=== PATIENT | female | born 1955 ===

== ENCOUNTER 2017-01-17 21:08 | Emergency (ER) | payer MEDICARE, SELFPAY ==
[2017-01-17 21:08] VITALS: BMI 30.2
[2017-01-17 21:23] VITALS: BP 117/74; PULSE 77; TEMP 98.5; O2SAT 99
[2017-01-17 21:44] LABS: RBC URINE 1 /hpf (0-3); URINE BACTERIA OCC (<OCC); URINE BILIRUBIN NEGATIVE (NEGATIVE); URINE BLOOD NEGATIVE (NEGATIVE); URINE COLOR Straw (YELLOW); URINE GLUCOSE (UA) NORMAL (Normal); URINE KETONE NEGATIVE (NEGATIVE); URINE LEUKOCYTE ESTERASE 1+ Leu/uL (Negative); URINE PROTEIN NEGATIVE (NEGATIVE); URINE UROBILINOGEN NORMAL mg/dL (0.2-1.0); WBC URINE 13 /hpf (0-5)
--- NOTE | 2017-01-17 22:27 | C.PDOC ---
History Of Present Illness 61 y/o female with known hx recurrent UTI, presents complaining of lower back pain, suprapublic pain, and moderate dysuria since last night. She reports that this is similar to previous UTI. No fever, chills, nausea, vomiting, or other complaints. Time Seen by Provider: 01/17/17 21:30 Chief Complaint (Nursing): Female Genitourinary History Per: Patient History/Exam Limitations: no limitations Onset/Duration Of Symptoms: Days (1) Current Symptoms Are (Timing): Still Present Severity: Moderate Quality Of Discomfort: "Pain" Associated Symptoms: Back Pain, Urinary Symptoms. denies: Fever, Chills, Nausea , Vomiting, Diarrhea, Loss Of Appetite, Chest Pain, Constipation Alleviating Factors: None Recent travel outside of the [place]: No Additional History Per: Patient Past Medical History Vital Signs: Last Vital Signs Temp 98.5 F 01/17/17 21:20 Pulse 77 01/17/17 21:20 Resp 20 01/17/17 22:35 BP 117/74 01/17/17 21:20 Pulse Ox 99 01/18/17 03:02 - Medical History PMH: Anemia, Anxiety, Arthritis, Asthma, Back Problems, Colonic Polyps, COPD ( COPD), Depression, Diverticulitis, Fibromyalgia, Gastritis, HTN, Hyperlipidemia Denies: Chronic Kidney Disease Surgical History: Appendectomy, Endoscopy (Colonoscopy) - [facility] Procedures ANESTH INJEC PERIPH NERV (01/19/15) ARTHROTOMY FOR REMOVAL OF PROSTHESIS W/OUT REPM, KNEE (11/03/14) CLOSED BIOPSY OF SKIN AND SUBCUTANEOUS TISSUE (11/03/14) DESTRUCT-KNEE LESION NEC (01/19/15) INJECT STEROID (01/19/15) INSERTION OR REPLACEMENT OF (CEMENT) SPACER (11/03/14) NONEXCIS DEBRID OF WOUND, INFECT, OR BURN (11/03/14) OPEN BIOPSY OF SOFT TISSUE (01/19/15) PACKED CELL TRANSFUSION (11/03/14) PERIPH NERVE INJECT NEC (01/19/15) PHYSICAL THERAPY NEC (05/14/14) REMOVAL OF (CEMENT) SPACER (01/19/15) TITUS OF KNEE REPLACEMENT, TOTAL (ALL COMPONENTS) (01/19/15) Family History: States: Unknown Family Hx - Social History Hx Tobacco Use: No Hx Alcohol Use: No Hx Substance Use: No - Immunization History Hx Tetanus Toxoid Vaccination: No Hx Influenza Vaccination: No Hx Pneumococcal Vaccination: Yes Review Of Systems Except As Marked, All Systems Reviewed And Found Negative. Gastrointestinal: Positive for: Abdominal Pain Genitourinary: Positive for: Dysuria Musculoskeletal: Positive for: Back Pain Physical Exam - Physical Exam Appears: Well, No Acute Distress Skin: Normal Color, Warm, Dry Eye(s): bilateral: Normal Inspection, PERRL, EOMI Nose: Normal Throat: Normal Neck: Normal Cardiovascular: Rhythm Regular Respiratory: Normal Breath Sounds Gastrointestinal/Abdominal: Normal Exam Back: Normal Inspection Extremity: Normal ROM ED Course And Treatment O2 Sat by Pulse Oximetry: 99 (RA) Pulse Ox Interpretation: Normal Progress Note: UA positive for RBC and WBC. Patient given Toradol, Pyridium, and Macrobid. C&S sent. Rx for Pyridium and Macrobid given. Follow up with PMD. Disposition Counseled Patient/Family Regarding: Diagnosis, Need For Followup - Disposition Disposition: HOME/ ROUTINE Disposition Time: 02:40 Condition: STABLE Additional Instructions: Please Increase fluids Take meds as directed Follow up with PMD Return to ER if worse Prescriptions: Nitrofurantoin Macrocrystals [Macrobid] 1 cap PO BID #14 cap Phenazopyridine HCl [Pyridium] 100 mg PO TID #5 tab Instructions: Urinary Tract Infection in Women (ED) - Clinical Impression Clinical Impression: UTI (urinary tract infection) - Scribe Statement The provider has reviewed the documentation as recorded by the Scribe Vanessa Torres
[2017-01-17 22:37] VITALS: RESP 20
== END 2017-01-17 22:35 | disposition home or self-care (01) ==
LOC: C.ER 21:08
DX: N39.0 Urinary tract infection, site not specified (principal)
CPT/HCPCS: 81001; 96372; 99283; J1885

== ENCOUNTER 2017-03-12 13:06 | Emergency (ER) | payer MEDICARE ==
[2017-03-12 13:06] VITALS: BMI 30.2
[2017-03-12] MEDS ORDERED: Albuterol-Ipratrop 3 mg / 0.5 (3 ml) UD ONE (15:00)
[2017-03-12] MEDS: Albuterol-Ipratrop 3 mg / 0.5 (3 ml) UD IH SCH (15:06)
--- NOTE | 2017-03-12 15:12 | RAD ---
HISTORY: Shortness of breath COMPARISON: 08/18/2015 TECHNIQUE: Chest PA and lateral FINDINGS: LUNGS: Patchy increased markings at the left lung base suggestive for atelectasis and or infiltrate. Clinical correlation. Small nodular density at the right upper to mid lung zone and right costophrenic angle which may represent confluence shadows of ribs and vessels versus small nodules and or granulomas. Clinical correlation. PLEURA: No significant pleural effusion identified. No pneumothorax apparent. CARDIOVASCULAR: Tortuous aorta. Mild cardiomegaly. OSSEOUS STRUCTURES: Degenerative changes in the spine and shoulders. VISUALIZED UPPER ABDOMEN: Normal. OTHER FINDINGS: None. IMPRESSION: Patchy increased markings at the left lung base suggestive for atelectasis and or infiltrate. Clinical correlation. Small nodular density at the right upper to mid lung zone and right costophrenic angle which may represent confluence shadows of ribs and vessels versus small nodules and or granulomas. Clinical correlation.
[2017-03-12 15:19] LABS: BASO % 0.5 % (0.0-2.0); EOS # 0.1 K/uL (0.0-0.7); EOS % 1.5 % (0.0-4.0); HEMOGLOBIN 13.7 g/dL (11.0-16.0); LYMPH % 21.3 % (20.0-40.0); MEAN CORPUSCULAR HEMOGLOBIN 27.4 pg (27.0-31.0); MEAN CORPUSCULAR HGB CONC 33.1 g/dL (33.0-37.0); MEAN PLATELET VOLUME 8.7 fL (7.2-11.7); MONO # 0.7 K/uL (0.0-0.8); MONO % 7.3 % (0.0-10.0); NEUT # 6.4 K/uL (1.8-7.0); NEUT % 69.4 % (50.0-75.0); NRBC % 0.1 % (0.0-2.0); RED CELL DISTRIBUTION WIDTH 14.3 % (11.5-14.5); WHITE BLOOD COUNT 9.3 K/uL (4.8-10.8)
[2017-03-12 15:27] LABS: ALBUMIN 3.9 g/dL (3.5-5.0)
[2017-03-12 15:29] LABS: GFR AFRICAN-AMERICAN > 60; GFR NON-AFRICAN AMERICAN > 60
[2017-03-12 15:30] LABS: ALB/GLOB RATIO 1.2 (1.0-2.1); ALT/SGPT 18 U/L (9-52); AST/SGOT 16 U/L (14-36); BLOOD UREA NITROGEN 19 mg/dL (7-17); CALCIUM 9.7 mg/dl (8.6-10.4)
[2017-03-12 15:39] LABS: B-TYPE NATRIURETIC PEPTIDE 45.9 pg/mL (0-900)
[2017-03-12 16:25] VITALS: O2SAT 96
[2017-03-12 16:39] VITALS: RESP 18; TEMP 98.2
[2017-03-12] MEDS ORDERED: Iodixanol 320 MG/ML 100 ML BOTTLE IV ONE (17:19)
--- NOTE | 2017-03-12 17:22 | C.PDOC ---
History Of Present Illness 62F hx of asthma c/o sob and dry cough x1 week. her pcp gave her breathing treatments and steroids a week ago when it began but she is not any better. no fever or chest pain. Time Seen by Provider: 03/12/17 14:09 Chief Complaint (Nursing): Respiratory Distress Past Medical History Vital Signs: Last Vital Signs Temp 98.2 F 03/12/17 16:37 Pulse 87 03/12/17 18:05 Resp 18 03/12/17 18:05 BP 133/79 03/12/17 18:05 Pulse Ox 96 03/12/17 18:14 - Medical History PMH: Anemia, Anxiety, Arthritis, Asthma, Back Problems, Bipolar Disorder, Colonic Polyps, COPD (COPD), Depression, Diverticulitis, Fibromyalgia, Gastritis , HTN, Hyperlipidemia Denies: Chronic Kidney Disease Surgical History: Appendectomy, Endoscopy (Colonoscopy) - [facility] Procedures ANESTH INJEC PERIPH NERV (01/19/15) ARTHROTOMY FOR REMOVAL OF PROSTHESIS W/OUT REPM, KNEE (11/03/14) CLOSED BIOPSY OF SKIN AND SUBCUTANEOUS TISSUE (11/03/14) DESTRUCT-KNEE LESION NEC (01/19/15) INJECT STEROID (01/19/15) INSERTION OR REPLACEMENT OF (CEMENT) SPACER (11/03/14) NONEXCIS DEBRID OF WOUND, INFECT, OR BURN (11/03/14) OPEN BIOPSY OF SOFT TISSUE (01/19/15) PACKED CELL TRANSFUSION (11/03/14) PERIPH NERVE INJECT NEC (01/19/15) PHYSICAL THERAPY NEC (05/14/14) REMOVAL OF (CEMENT) SPACER (01/19/15) TITUS OF KNEE REPLACEMENT, TOTAL (ALL COMPONENTS) (01/19/15) Family History: States: Other Other Family History: nc - Social History Hx Tobacco Use: No Hx Alcohol Use: No Hx Substance Use: No - Immunization History Hx Tetanus Toxoid Vaccination: No Hx Influenza Vaccination: Yes Hx Pneumococcal Vaccination: Yes Review Of Systems Except As Marked, All Systems Reviewed And Found Negative. Constitutional: Negative for: Fever Cardiovascular: Negative for: Chest Pain, Edema, Light Headedness Respiratory: Positive for: Cough, Shortness of Breath. Negative for: Sputum Gastrointestinal: Negative for: Nausea, Vomiting, Abdominal Pain Genitourinary: Negative for: Dysuria Neurological: Negative for: Weakness, Numbness Physical Exam - Physical Exam Appears: Well, Non-toxic, No Acute Distress Skin: Warm, Dry Head: Atraumatic Eye(s): bilateral: PERRL Oral Mucosa: Moist Neck: Normal ROM Cardiovascular: Rhythm Regular Respiratory: No Decreased Breath Sounds, No Accessory Muscle Use, No Rales, No Rhonchi, No Stridor, No Wheezing Gastrointestinal/Abdominal: No Soft, No Tenderness Extremity: No Calf Tenderness, No Swelling Pulses: Right Radial: Normal, Left Dorsalis Pedis: Normal, Right Dorsalis Pedis : Normal Neurological/Psych: Oriented x3, Other (no focal deficits) ED Course And Treatment - Laboratory Results Result Diagrams: 03/12/17 15:15 03/12/17 15:15 O2 Sat by Pulse Oximetry: 96 Medical Decision Making Medical Decision Making: ecg- nsr 80, LAD, no int, no acute ischemia CT A/P PROCEDURE: CT Chest with contrast (Pulmonary Angiogram) HISTORY: Shortness of breath, elevated D-dimer and chest pain. COMPARISON: None available. TECHNIQUE: Axial computed tomography images were obtained of the chest in the pulmonary arterial phase of enhancement. Coronal and sagittal reformatted images were created and reviewed. Intravenous contrast dose: 80 cc Visipaque 320. Mean Hounsfield unit values in the main pulmonary artery: 260.37 Radiation dose: Total exam DLP = 366.42 mGy-cm. This CT exam was performed using one or more of the following dose reduction techniques: Automated exposure control, adjustment of the mA and/or kV according to patient size, and/or use of iterative reconstruction technique. FINDINGS: PULMONARY ARTERIES: Unremarkable. No pulmonary embolism. AORTA: No acute findings. No thoracic aortic aneurysm. LUNGS: Unremarkable. No nodule, mass or pulmonary consolidation. PLEURAL SPACES: Unremarkable. No effusion or pneuomothorax. HEART: Unremarkable. No cardiomegaly. No significant pericardial effusion. LYMPH NODES: No lymphadenopathy. BONES, CHEST WALL: Multilevel degenerative change. No pre or paravertebral abnormalities identified. No fracture or destructive lesion OTHER FINDINGS: Unremarkable. IMPRESSION: Unremarkable CT pulmonary angiogram. No pulmonary embolus.No significant or acute findings to account for/ related to the clinical presentation. on re-eval the pt feels better. i disc results, plan for f/u, and rtr. Disposition - Disposition Referrals: Oz Tucker MD [Staff Provider] - Disposition: HOME/ ROUTINE Disposition Time: 18:09 Condition: IMPROVED Prescriptions: Azithromycin 250 mg PO DAILY #6 tab Forms: General Discharge Instructions - Clinical Impression Clinical Impression: Exacerbation of asthma
[2017-03-12 18:07] VITALS: BP 133/79; PULSE 87
--- NOTE | 2017-03-12 18:08 | CT ---
PROCEDURE: CT Chest with contrast (Pulmonary Angiogram) HISTORY: Shortness of breath, elevated D-dimer and chest pain. COMPARISON: None available. TECHNIQUE: Axial computed tomography images were obtained of the chest in the pulmonary arterial phase of enhancement. Coronal and sagittal reformatted images were created and reviewed. Intravenous contrast dose: 80 cc Visipaque 320. Mean Hounsfield unit values in the main pulmonary artery: 260.37 Radiation dose: Total exam DLP = 366.42 mGy-cm. This CT exam was performed using one or more of the following dose reduction techniques: Automated exposure control, adjustment of the mA and/or kV according to patient size, and/or use of iterative reconstruction technique. FINDINGS: PULMONARY ARTERIES: Unremarkable. No pulmonary embolism. AORTA: No acute findings. No thoracic aortic aneurysm. LUNGS: Unremarkable. No nodule, mass or pulmonary consolidation. PLEURAL SPACES: Unremarkable. No effusion or pneuomothorax. HEART: Unremarkable. No cardiomegaly. No significant pericardial effusion. LYMPH NODES: No lymphadenopathy. BONES, CHEST WALL: Multilevel degenerative change. No pre or paravertebral abnormalities identified. No fracture or destructive lesion OTHER FINDINGS: Unremarkable. IMPRESSION: Unremarkable CT pulmonary angiogram. No pulmonary embolus.No significant or acute findings to account for/ related to the clinical presentation.
--- NOTE | 2017-03-17 19:14 | CARD ---
APPROVED REPORT EKG Measurement Heart [id number] IN 140P69 [id number] <Conclusion> Normal sinus rhythm Left axis deviation Abnormal ECG
== END 2017-03-12 18:32 | disposition home or self-care (01) ==
LOC: C.ER 13:06
DX: J45.901 Unspecified asthma with (acute) exacerbation (principal)
CPT/HCPCS: 71020; 71275; 80053; 83880; 84484; 85025; 85378; 94150; 94640; 96374; 99285; J2930; Q9967

== ENCOUNTER 2017-03-21 11:44 | Emergency (ER) | payer MEDICARE ==
[2017-03-21 11:44] VITALS: BMI 30.2
[2017-03-21 11:56] VITALS: O2SAT 98
--- NOTE | 2017-03-21 11:57 | C.PDOC ---
History Of Present Illness 62 y/o female with Hx of anxiety, panic attack and back pain presents to ED with complaints of neck pain and anxiety with associated panic attacks since yesterday. Patient reports taking Xanax RN LIAISON with no improvement and decided to come to ED for further evaluation. Patient denies fever, chills, suicidal ideation or any other complaints at this time. Time Seen by Provider: 03/21/17 11:47 Chief Complaint (Nursing): Anxiety History Per: Patient History/Exam Limitations: no limitations Onset/Duration Of Symptoms: Days Current Symptoms Are (Timing): Still Present Associated Symptoms: Anxiety. denies: Suicidal Thoughts Past Medical History Reviewed: Historical Data, Nursing Documentation, Vital Signs Vital Signs: Last Vital Signs Temp 97.8 F 03/21/17 13:53 Pulse 70 03/21/17 13:53 Resp 16 03/21/17 13:53 BP 112/71 03/21/17 13:53 Pulse Ox 98 03/21/17 13:53 - Medical History PMH: Anemia, Anxiety, Arthritis, Asthma, Back Problems, Bipolar Disorder, Colonic Polyps, COPD (COPD), Depression, Diverticulitis, Fibromyalgia, Gastritis , HTN, Hyperlipidemia Surgical History: Appendectomy, Endoscopy (Colonoscopy) - [facility] Procedures ANESTH INJEC PERIPH NERV (01/19/15) ARTHROTOMY FOR REMOVAL OF PROSTHESIS W/OUT REPM, KNEE (11/03/14) CLOSED BIOPSY OF SKIN AND SUBCUTANEOUS TISSUE (11/03/14) DESTRUCT-KNEE LESION NEC (01/19/15) INJECT STEROID (01/19/15) INSERTION OR REPLACEMENT OF (CEMENT) SPACER (11/03/14) NONEXCIS DEBRID OF WOUND, INFECT, OR BURN (11/03/14) OPEN BIOPSY OF SOFT TISSUE (01/19/15) PACKED CELL TRANSFUSION (11/03/14) PERIPH NERVE INJECT NEC (01/19/15) PHYSICAL THERAPY NEC (05/14/14) REMOVAL OF (CEMENT) SPACER (01/19/15) TITUS OF KNEE REPLACEMENT, TOTAL (ALL COMPONENTS) (01/19/15) Family History: States: No Known Family Hx - Social History Hx Tobacco Use: No Hx Alcohol Use: No Hx Substance Use: No - Immunization History Hx Tetanus Toxoid Vaccination: No Hx Influenza Vaccination: Yes Hx Pneumococcal Vaccination: Yes Review Of Systems Except As Marked, All Systems Reviewed And Found Negative. Constitutional: Negative for: Fever, Chills Cardiovascular: Negative for: Chest Pain Skin: Negative for: Rash Neurological: Negative for: Weakness Psych: Positive for: Anxiety. Negative for: Suicidal ideation Physical Exam - Physical Exam Appears: Other (Upset, tearful and crying) Skin: Normal Color, Warm Head: Atraumatic, Normacephalic Oral Mucosa: Moist Neck: Normal ROM Extremity: Normal ROM Neurological/Psych: Oriented x3, Normal Speech ED Course And Treatment - Laboratory Results Result Diagrams: 03/21/17 12:51 03/21/17 12:51 Lab Interpretation: Normal Interpretation Of ECG: Unusual P axis and short IL, probable junctional rhythm Rate From EC (bpm) O2 Sat by Pulse Oximetry: 98 (RA) Pulse Ox Interpretation: Normal Progress Note: Treated with IVF NSS and Duoneb x 1. On re-evaluation lungs clear in no distress. calm. Requesting to go home Reassessment Condition: Improved Medical Decision Making Medical Decision Making: Plan: Patient is under observation Disposition Counseled Patient/Family Regarding: Studies Performed, Diagnosis, Need For Followup - Disposition Referrals: Alex Tucker MD [Staff Provider] - Disposition: HOME/ ROUTINE Disposition Time: 14:00 Condition: STABLE Additional Instructions: Follow up with PMD for further evaluation Instructions: Generalized Anxiety Disorder (ED), Anxiety (ED) - POA Present On Arrival: None - Clinical Impression Clinical Impression: Anxiety, Mixed anxiety and depressive disorder - Scribe Statement The provider has reviewed the documentation as recorded by the Yaneth Cordova All medical record entries made by the Filomenaibjackie were at my direction and personally dictated by me. I have reviewed the chart and agree that the record accurately reflects my personal performance of the history, physical exam, medical decision making, and the department course for this patient. I have also personally directed, reviewed, and agree with the discharge instructions and disposition.
[2017-03-21] MEDS ORDERED: Sodium Chloride 0.9% 1,000 ML IV ONE (12:14)
[2017-03-21] MEDS ORDERED: Albuterol-Ipratrop 3 mg / 0.5 (3 ml) UD IH STA (12:14)
[2017-03-21] MEDS ORDERED: Albuterol-Ipratrop 3 mg / 0.5 (3 ml) UD ONE (12:34)
--- NOTE | 2017-03-21 12:45 | RAD ---
HISTORY: Shortness of breath COMPARISON: 03/12/2017. TECHNIQUE: Chest PA and lateral FINDINGS: LUNGS: The lungs are well inflated and clear. PLEURA: No significant pleural effusion identified. No pneumothorax apparent. CARDIOVASCULAR: Normal. OSSEOUS STRUCTURES: Within normal limits for the patient's age. VISUALIZED UPPER ABDOMEN: Normal. OTHER FINDINGS: None. IMPRESSION: No active pulmonary disease.
[2017-03-21] MEDS ORDERED: Sodium Chloride 0.9% 1,000 ML ONE (12:48)
[2017-03-21 12:54] LABS: BASO # 0.1 K/uL (0.0-0.2); BASO % 0.9 % (0.0-2.0); EOS # 0.1 K/uL (0.0-0.7); EOS % 1.5 % (0.0-4.0); LYMPH # 1.6 K/uL (1.0-4.3); LYMPH % 17.6 % (20.0-40.0); MEAN CELL VOLUME 81.6 fL (81.0-99.0); MEAN CORPUSCULAR HEMOGLOBIN 27.2 pg (27.0-31.0); MEAN CORPUSCULAR HGB CONC 33.3 g/dL (33.0-37.0); MEAN PLATELET VOLUME 8.5 fL (7.2-11.7); MONO # 0.6 K/uL (0.0-0.8); MONO % 6.2 % (0.0-10.0); NEUT # 6.7 K/uL (1.8-7.0); NEUT % 73.8 % (50.0-75.0); RBC 4.32 Mil/uL (3.80-5.20); RED CELL DISTRIBUTION WIDTH 14.1 % (11.5-14.5); WHITE BLOOD COUNT 9.1 K/uL (4.8-10.8)
[2017-03-21 13:03] LABS: HEMOGLOBIN 11.7 g/dL (11.0-16.0)
[2017-03-21 13:08] LABS: ALBUMIN 3.5 g/dL (3.5-5.0)
[2017-03-21 13:11] LABS: ALB/GLOB RATIO 1.3 (1.0-2.1); AST/SGOT 23 U/L (14-36); GFR AFRICAN-AMERICAN > 60; GFR NON-AFRICAN AMERICAN > 60
[2017-03-21 13:12] LABS: ALT/SGPT 31 U/L (9-52); BLOOD UREA NITROGEN 19 mg/dL (7-17); CALCIUM 9.4 mg/dl (8.6-10.4)
[2017-03-21 13:25] LABS: SQUAMOUS EPITHIAL 1 /hpf (0-5); URINE BACTERIA RARE (<OCC); URINE BILIRUBIN NEGATIVE (NEGATIVE); URINE BLOOD NEGATIVE (NEGATIVE); URINE COLOR Straw (YELLOW); URINE GLUCOSE (UA) NORMAL (Normal); URINE LEUKOCYTE ESTERASE 3+ Leu/uL (Negative); URINE NITRATE NEGATIVE (NEGATIVE); URINE PROTEIN NEGATIVE (NEGATIVE); URINE UROBILINOGEN NORMAL mg/dL (0.2-1.0)
[2017-03-21 13:27] LABS: URINE CLARITY SLHAZY (Clear)
[2017-03-21 13:54] VITALS: BP 112/71; PULSE 70; RESP 16; TEMP 97.8
--- NOTE | 2017-03-23 12:36 | CARD ---
APPROVED REPORT EKG Measurement Heart [id number] MS [id number] [id number] <Conclusion> Unusual P axis and short MS, probable junctional rhythm Abnormal ECG
== END 2017-03-21 13:53 | disposition home or self-care (01) ==
LOC: C.ER 11:44
DX: F41.8 Other specified anxiety disorders (principal)
CPT/HCPCS: 71020; 80053; 81001; 82948; 85025; 94150; 94640; 96360; 99284; J7040

== ENCOUNTER 2017-08-15 13:43 | Emergency (ER) | payer MEDICARE ==
[2017-08-15 13:52] VITALS: BMI 29.9
[2017-08-15 13:57] VITALS: O2SAT 98
[2017-08-15 14:53] LABS: BASO # 0.1 K/uL (0.0-0.2); BASO % 0.7 % (0.0-2.0); EOS # 0.1 K/uL (0.0-0.7); EOS % 1.9 % (0.0-4.0); HEMATOCRIT 38.4 % (34.0-47.0); LYMPH # 1.7 K/uL (1.0-4.3); LYMPH % 23.3 % (20.0-40.0); MEAN CELL VOLUME 82.2 fL (81.0-99.0); MEAN CORPUSCULAR HEMOGLOBIN 27.6 pg (27.0-31.0); MEAN CORPUSCULAR HGB CONC 33.6 g/dL (33.0-37.0); MEAN PLATELET VOLUME 8.6 fL (7.2-11.7); MONO # 0.5 K/uL (0.0-0.8); MONO % 7.3 % (0.0-10.0); RED CELL DISTRIBUTION WIDTH 14.7 % (11.5-14.5); WHITE BLOOD COUNT 7.4 K/uL (4.8-10.8)
[2017-08-15 15:09] LABS: ALB/GLOB RATIO 1.6 (1.0-2.1); ALKALINE PHOSPHATASE 60 U/L (38-126); ALT/SGPT 32 U/L (9-52); AST/SGOT 25 U/L (14-36); BILIRUBIN,TOTAL 0.9 mg/dL (0.2-1.3); BLOOD UREA NITROGEN 17 mg/dL (7-17); CALCIUM 9.3 mg/dl (8.6-10.4); CARBON DIOXIDE 25 mmol/L (22-30); CHLORIDE 104 mmol/L (98-107); GFR AFRICAN-AMERICAN > 60; GLUCOSE,RANDOM 93 mg/dL (65-105); POTASSIUM 3.8 mmol/L (3.6-5.2); SODIUM 139 mmol/L (132-148)
--- NOTE | 2017-08-15 15:47 | RAD ---
HISTORY: LEFT SIDED CHEST PAIN COMPARISON: Chest radiographs 03/21/2017. TECHNIQUE: Chest PA and lateral FINDINGS: LUNGS: No active pulmonary disease. PLEURA: No significant pleural effusion identified. No pneumothorax apparent. CARDIOVASCULAR: Normal. OSSEOUS STRUCTURES: No significant abnormalities. VISUALIZED UPPER ABDOMEN: Normal. OTHER FINDINGS: None. IMPRESSION: No interval acute cardiopulmonary disease appreciated.
--- NOTE | 2017-08-15 17:43 | C.PDOC ---
History Of Present Illness 62 year old female with Hx of HTN and HLD presents to the ED c/o intermittent sharp like left sided pleuritic CP for the past 2 days. Patient reports yesterday the pain radiated to her left arm, but denies any injury, fall, or trauma. Patient denies cough, fever, SOB, rash, or any known Hx of cardiac disease. Time Seen by Provider: 08/15/17 14:02 Chief Complaint (Nursing): Chest Pain History Per: Patient History/Exam Limitations: no limitations Onset/Duration Of Symptoms: Days Current Symptoms Are (Timing): Still Present Quality: Sharp Associated Symptoms: denies: Nausea, Dyspnea, Diaphoresis Modifying Factors: None Recent travel outside of the [place]: No Additional History Per: Patient Past Medical History Reviewed: Historical Data, Nursing Documentation, Vital Signs Vital Signs: Last Vital Signs Temp 97.9 F 08/15/17 17:47 Pulse 65 08/15/17 17:47 Resp 18 08/15/17 17:47 BP 138/85 08/15/17 17:47 Pulse Ox 98 08/15/17 17:57 - Medical History PMH: Anemia, Anxiety, Arthritis, Asthma, Back Problems, Bipolar Disorder, Colonic Polyps, COPD, Depression, Diverticulitis, Fibromyalgia, Gastritis, HTN, Hyperlipidemia Denies: Chronic Kidney Disease Surgical History: Appendectomy, Endoscopy (Colonoscopy) - [facility] Procedures ANESTH INJEC PERIPH NERV (01/19/15) ARTHROTOMY FOR REMOVAL OF PROSTHESIS W/OUT REPM, KNEE (11/03/14) CLOSED BIOPSY OF SKIN AND SUBCUTANEOUS TISSUE (11/03/14) DESTRUCT-KNEE LESION NEC (01/19/15) INJECT STEROID (01/19/15) INSERTION OR REPLACEMENT OF (CEMENT) SPACER (11/03/14) NONEXCIS DEBRID OF WOUND, INFECT, OR BURN (11/03/14) OPEN BIOPSY OF SOFT TISSUE (01/19/15) PACKED CELL TRANSFUSION (11/03/14) PERIPH NERVE INJECT NEC (01/19/15) PHYSICAL THERAPY NEC (05/14/14) REMOVAL OF (CEMENT) SPACER (01/19/15) TITUS OF KNEE REPLACEMENT, TOTAL (ALL COMPONENTS) (01/19/15) Family History: States: Unknown Family Hx - Social History Hx Tobacco Use: No Hx Alcohol Use: No Hx Substance Use: No - Immunization History Hx Tetanus Toxoid Vaccination: No Hx Influenza Vaccination: Yes Hx Pneumococcal Vaccination: Yes Review Of Systems Constitutional: Negative for: Fever, Chills Cardiovascular: Positive for: Chest Pain. Negative for: Palpitations Respiratory: Negative for: Cough, Shortness of Breath Gastrointestinal: Negative for: Nausea, Vomiting, Abdominal Pain Skin: Negative for: Rash Neurological: Negative for: Weakness, Numbness, Headache Physical Exam - Physical Exam Appears: Non-toxic, Other (Anxious, speaking in full sentences) Skin: Normal Color, Warm, Dry Head: Atraumatic, Normacephalic Nose: No Discharge Oral Mucosa: Moist Chest: Symmetrical, No Tenderness Cardiovascular: Rhythm Regular, No Murmur Respiratory: Normal Breath Sounds, No Rales, No Rhonchi, No Wheezing Gastrointestinal/Abdominal: Soft, No Tenderness, No Guarding, No Rebound Extremity: Normal ROM, No Pedal Edema, No Calf Tenderness, No Deformity, No Swelling Neurological/Psych: Oriented x3, Normal Speech, Normal Cognition Gait: Steady ED Course And Treatment - Laboratory Results Result Diagrams: 08/15/17 14:49 08/15/17 14:49 ECG: Interpreted By Me, Viewed By Me ECG Rhythm: Sinus Rhythm ECG Interpretation: Normal Interpretation Of ECG: EKG NSR 71 BPM, left axis deviation and no acute ST or T wave changes. Rate From EC O2 Sat by Pulse Oximetry: 98 - Radiology CXR: Interpreted by Me, Viewed By Me CXR Interpretation: Yes: Other (No interval acute cardiopulmonary disease appreciated). No: No Acute Disease, Infiltrates Medical Decision Making Medical Decision Making: Plan: * EKG ordered * CXR ordered * Blood work ordered Ordered troponin within 2 hrs difference and the results came back normal. Disposition Counseled Patient/Family Regarding: Studies Performed, Diagnosis, Need For Followup - Disposition Referrals: Oz Tucker MD [Staff Provider] - Disposition: HOME/ ROUTINE Disposition Time: 17:45 Condition: STABLE Additional Instructions: FOLLOW UP WITH YOUR DOCTOR IN 1-2 DAYS RETURN TO ER IF SYMPTOMS WORSEN Instructions: Noncardiac Chest Pain (ED) Forms: [facility] (Arabic) Print Language: TAJIK - POA Present On Arrival: None - Clinical Impression Clinical Impression: Non-cardiac chest pain - Scribe Statement The provider has reviewed the documentation as recorded by the Scribe Henrique Miner All medical record entries made by the Scribe were at my direction and personally dictated by me. I have reviewed the chart and agree that the record accurately reflects my personal performance of the history, physical exam, medical decision making, and the department course for this patient. I have also personally directed, reviewed, and agree with the discharge instructions and disposition.
[2017-08-15 17:48] VITALS: BP 138/85; PULSE 65; RESP 18; TEMP 97.9
== END 2017-08-15 17:53 | disposition home or self-care (01) ==
LOC: C.ER 13:43
DX: R07.89 Other chest pain (principal)

== ENCOUNTER 2018-03-03 18:22 | Emergency (ER) | payer MEDICARE ==
[2018-03-03 18:22] VITALS: BMI 29.9
--- NOTE | 2018-03-03 19:51 | C.PDOC ---
History Of Present Illness 63 year old female presents to the ED c/o right leg swelling that she noticed for the past 2 days. Patient denies injury, fall, trauma, SOB, fever, chills, weakness, numbness. Time Seen by Provider: 03/03/18 19:50 Chief Complaint (Nursing): Lower Extremity Problem/Injury History Per: Patient History/Exam Limitations: no limitations Onset/Duration Of Symptoms: Days (2) Current Symptoms Are (Timing): Still Present Recent travel outside of the [place]: No Additional History Per: Patient - Knee Description Of Injury: Other (swelling) - Ankle/Foot Description Of Injury: Other (swelling) Past Medical History Reviewed: Historical Data, Nursing Documentation, Vital Signs Vital Signs: Last Vital Signs Temp 97.8 F 03/03/18 21:01 Pulse 79 03/03/18 21:01 Resp 21 03/03/18 21:01 BP 100/55 L 03/03/18 21:01 Pulse Ox 98 03/03/18 21:49 - Medical History PMH: Anemia, Anxiety, Arthritis, Asthma, Back Problems, Bipolar Disorder, Colonic Polyps, COPD, Depression, Diverticulitis, Fibromyalgia, Gastritis, HTN, Hyperlipidemia Denies: Chronic Kidney Disease Surgical History: Appendectomy, Endoscopy (Colonoscopy) - [facility] Procedures ANESTH INJEC PERIPH NERV (01/19/15) ARTHROTOMY FOR REMOVAL OF PROSTHESIS W/OUT REPM, KNEE (11/03/14) CLOSED BIOPSY OF SKIN AND SUBCUTANEOUS TISSUE (11/03/14) DESTRUCT-KNEE LESION NEC (01/19/15) INJECT STEROID (01/19/15) INSERTION OR REPLACEMENT OF (CEMENT) SPACER (11/03/14) NONEXCIS DEBRID OF WOUND, INFECT, OR BURN (11/03/14) OPEN BIOPSY OF SOFT TISSUE (01/19/15) PACKED CELL TRANSFUSION (11/03/14) PERIPH NERVE INJECT NEC (01/19/15) PHYSICAL THERAPY NEC (05/14/14) REMOVAL OF (CEMENT) SPACER (01/19/15) TITUS OF KNEE REPLACEMENT, TOTAL (ALL COMPONENTS) (01/19/15) Family History: States: No Known Family Hx - Social History Hx Tobacco Use: No Hx Alcohol Use: No Hx Substance Use: No - Immunization History Hx Tetanus Toxoid Vaccination: No Hx Influenza Vaccination: Yes Hx Pneumococcal Vaccination: Yes Review Of Systems Constitutional: Negative for: Fever, Chills Cardiovascular: Negative for: Chest Pain Respiratory: Negative for: Shortness of Breath Gastrointestinal: Negative for: Nausea, Vomiting Musculoskeletal: Positive for: Leg Pain (swelling) Skin: Negative for: Rash Neurological: Negative for: Weakness, Numbness Physical Exam - Physical Exam Appears: Non-toxic, No Acute Distress Skin: Warm, Dry Head: Normacephalic Eye(s): bilateral: Normal Inspection Oral Mucosa: Moist Neck: Supple Chest: Symmetrical Cardiovascular: Rhythm Regular Respiratory: No Rales, No Rhonchi, No Wheezing Gastrointestinal/Abdominal: Soft, No Tenderness, No Guarding, No Rebound Back: Normal Inspection Extremity: No Tenderness, Swelling (right leg morethan left leg. ), Other ( right leg knee replacement scar) Extremity: Bilateral: Atraumatic, Normal Color And Temperature, Normal ROM ( moving all toes) Pulses: Left Dorsalis Pedis: Normal, Right Dorsalis Pedis: Normal Neurological/Psych: Oriented x3, Normal Speech, Normal Motor, Normal Sensation Gait: Steady ED Course And Treatment - Laboratory Results Result Diagrams: 03/03/18 20:11 03/03/18 20:11 ECG: Interpreted By Me, Viewed By Me ECG Rhythm: Sinus Rhythm (60), Nonspecific Changes O2 Sat by Pulse Oximetry: 98 (ON RA) Pulse Ox Interpretation: Normal Progress Note: Plan: - CTA chest. - EKG. - Labs. - Lovenox 80 mg SC Reevaluation Time: 22:31 Reassessment Condition: Improved Disposition Counseled Patient/Family Regarding: Studies Performed, Diagnosis, Need For Followup - Disposition Referrals: Oz Tucker MD [Staff Provider] - Disposition: HOME/ ROUTINE Disposition Time: 19:51 Condition: FAIR Additional Instructions: Please return tomorrow 03/04/18 at 7 am for an US of right leg Instructions: Dependent Edema (DC) Forms: [facility] (Polish) - Clinical Impression Clinical Impression: Leg pain, right, Leg edema, right - Scribe Statement The provider has reviewed the documentation as recorded by the Scribe Henrique Miner All medical record entries made by the Scribe were at my direction and personally dictated by me. I have reviewed the chart and agree that the record accurately reflects my personal performance of the history, physical exam, medical decision making, and the department course for this patient. I have also personally directed, reviewed, and agree with the discharge instructions and disposition.
[2018-03-03] MEDS ORDERED: Enoxaparin 40 mg Syringe SC STA (19:58)
[2018-03-03] MEDS ORDERED: Enoxaparin 80 mg Syringe ONE (20:08)
[2018-03-03 20:18] LABS: BASO # 0.1 K/uL (0.0-0.2); BASO % 1.1 % (0.0-2.0); EOS # 0.3 K/uL (0.0-0.7); EOS % 2.6 % (0.0-4.0); HEMOGLOBIN 12.8 g/dL (11.0-16.0); LYMPH # 2.4 K/uL (1.0-4.3); LYMPH % 25.6 % (20.0-40.0); MEAN CELL VOLUME 82.6 fL (81.0-99.0); MEAN CORPUSCULAR HGB CONC 33.9 g/dL (33.0-37.0); MEAN PLATELET VOLUME 9.1 fL (7.2-11.7); MONO # 0.6 K/uL (0.0-0.8); MONO % 6.7 % (0.0-10.0); NEUT # 6.1 K/uL (1.8-7.0); NRBC % 0.1 % (0.0-2.0); RBC 4.59 Mil/uL (3.80-5.20); RED CELL DISTRIBUTION WIDTH 14.1 % (11.5-14.5); WHITE BLOOD COUNT 9.5 K/uL (4.8-10.8)
[2018-03-03 20:27] LABS: PROTHROMBIN TIME 10.6 SECONDS (9.7-12.2)
[2018-03-03 20:33] LABS: ALB/GLOB RATIO 1.5 (1.0-2.1); ALBUMIN 4.7 g/dL (3.5-5.0); ALT/SGPT 26 U/L (9-52); AST/SGOT 27 U/L (14-36); BLOOD UREA NITROGEN 21 mg/dL (7-17); CALCIUM 10.2 mg/dl (8.6-10.4); GFR AFRICAN-AMERICAN > 60; GFR NON-AFRICAN AMERICAN > 60
[2018-03-03 20:46] LABS: B-TYPE NATRIURETIC PEPTIDE 97.8 pg/mL (0-900)
[2018-03-03 21:03] VITALS: BP 100/55; PULSE 79; RESP 21; TEMP 97.8
[2018-03-03] MEDS ORDERED: Iodixanol 320 MG/ML 100 ML BOTTLE IV ONE (21:23)
[2018-03-03 21:47] VITALS: O2SAT 98
--- NOTE | 2018-03-04 09:04 | CT ---
PROCEDURE: CT Chest with contrast (Pulmonary Angiogram) HISTORY: elevated d dimer COMPARISON: 03/12/2017 TECHNIQUE: Axial computed tomography images were obtained of the chest in the pulmonary arterial phase of enhancement. Coronal and sagittal reformatted images were created and reviewed. Intravenous contrast dose: 100 mL Visipaque 320 Radiation dose: Total exam DLP = 410.93 mGy-cm. This CT exam was performed using one or more of the following dose reduction techniques: Automated exposure control, adjustment of the mA and/or kV according to patient size, and/or use of iterative reconstruction technique. FINDINGS: PULMONARY ARTERIES: Unremarkable. No pulmonary embolism. AORTA: No acute findings. No thoracic aortic aneurysm. LUNGS: Unremarkable. No nodule, mass or pulmonary consolidation. PLEURAL SPACES: Unremarkable. No effusion or pneuomothorax. HEART: Unremarkable. No cardiomegaly. No significant pericardial effusion. LYMPH NODES: No lymphadenopathy. BONES, CHEST WALL: Unremarkable. 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 Characteristic attenuation morphology. IMPRESSION: No evidence of pulmonary embolism. Incidental right renal angio George lipoma. No pulmonary infiltrate/ pleural effusion. Preliminary interpretation of this examination was reported by [facility] at 10:10 p.m. on 03/03/2018. There is concurrence of this report with the preliminary interpretation.
--- NOTE | 2018-03-06 12:15 | CARD ---
APPROVED REPORT EKG Measurement Heart [id number] <Conclusion> Normal sinus rhythm Left axis deviation Anterior infarct, age undetermined Abnormal ECG
== END 2018-03-03 23:26 | disposition home or self-care (01) ==
LOC: C.ER 18:22
DX: M79.604 Pain in right leg (principal); R60.0 Localized edema; I10 Essential (primary) hypertension; E78.5 Hyperlipidemia, unspecified; M19.90 Unspecified osteoarthritis, unspecified site
CPT/HCPCS: 71275; 80053; 83880; 85025; 85378; 85610; 85730; 93005; 96372; 99284; J1650; Q9967

== ENCOUNTER 2018-03-04 06:52 | Emergency (ER) | payer MEDICARE ==
[2018-03-04 06:52] VITALS: BMI 29.9
--- NOTE | 2018-03-04 07:56 | C.PDOC ---
History Of Present Illness Patient is a 63 y/o female who presents to the ED for a US Doppler on right leg. Patient was seen here last night for complaint of right leg pain and swelling for 2 days and is s/p labs, CTA, and Lovenox at 7:30pm. Patient admits since discharge last night, leg swelling improved. Denies any new symptoms at this time. Time Seen by Provider: 03/04/18 07:22 Chief Complaint (Nursing): Lower Extremity Problem/Injury History Per: Patient History/Exam Limitations: no limitations Onset/Duration Of Symptoms: Days (2) Current Symptoms Are (Timing): Better Recent travel outside of the [place]: No Past Medical History Reviewed: Historical Data, Nursing Documentation, Vital Signs Vital Signs: Last Vital Signs Temp 98.0 F 03/04/18 06:59 Pulse 69 03/04/18 06:59 Resp 17 03/04/18 06:59 BP 156/93 H 03/04/18 06:59 Pulse Ox 96 03/04/18 08:05 - Medical History PMH: Anemia, Anxiety, Arthritis, Asthma, Back Problems, Bipolar Disorder, Colonic Polyps, COPD, Depression, Diverticulitis, Fibromyalgia, Gastritis, HTN, Hyperlipidemia Denies: Chronic Kidney Disease Surgical History: Appendectomy, Endoscopy (Colonoscopy) - [facility] Procedures ANESTH INJEC PERIPH NERV (01/19/15) ARTHROTOMY FOR REMOVAL OF PROSTHESIS W/OUT REPM, KNEE (11/03/14) CLOSED BIOPSY OF SKIN AND SUBCUTANEOUS TISSUE (11/03/14) DESTRUCT-KNEE LESION NEC (01/19/15) INJECT STEROID (01/19/15) INSERTION OR REPLACEMENT OF (CEMENT) SPACER (11/03/14) NONEXCIS DEBRID OF WOUND, INFECT, OR BURN (11/03/14) OPEN BIOPSY OF SOFT TISSUE (01/19/15) PACKED CELL TRANSFUSION (11/03/14) PERIPH NERVE INJECT NEC (01/19/15) PHYSICAL THERAPY NEC (05/14/14) REMOVAL OF (CEMENT) SPACER (01/19/15) TITUS OF KNEE REPLACEMENT, TOTAL (ALL COMPONENTS) (01/19/15) Family History: States: Unknown Family Hx - Social History Hx Tobacco Use: No Hx Alcohol Use: No Hx Substance Use: No - Immunization History Hx Tetanus Toxoid Vaccination: No Hx Influenza Vaccination: Yes Hx Pneumococcal Vaccination: Yes Review Of Systems Constitutional: Negative for: Fever, Chills Cardiovascular: Negative for: Chest Pain Respiratory: Negative for: Shortness of Breath Musculoskeletal: Positive for: Leg Pain (right leg pain and swelling) Neurological: Negative for: Weakness, Numbness Physical Exam - Physical Exam Appears: Well, Non-toxic, No Acute Distress Skin: Normal Color, Warm, Dry Head: Atraumatic, Normacephalic Eye(s): bilateral: PERRL, EOMI Oral Mucosa: Moist Chest: Symmetrical Cardiovascular: Rhythm Regular, No Murmur Respiratory: Normal Breath Sounds, No Rales, No Rhonchi, No Wheezing Gastrointestinal/Abdominal: Soft, No Tenderness, No Guarding, No Rebound Back: Normal Inspection Extremity: No Tenderness, Swelling (right leg more than left), Other (right knee replacement scar) Extremity: Bilateral: Atraumatic, Normal Color And Temperature, Normal ROM ( moving all toes) Pulses: Left Dorsalis Pedis: Normal, Right Dorsalis Pedis: Normal Neurological/Psych: Oriented x3, Normal Speech, Normal Motor, Normal Sensation Gait: Steady ED Course And Treatment O2 Sat by Pulse Oximetry: 96 Pulse Ox Interpretation: Normal - Other Rad rle DOPPLER X-Ray: Read By Radiologist (NEG DVT PER TECH REPORT) Progress Note: Venous duplex scan of Right leg ordered. Disposition Counseled Patient/Family Regarding: Studies Performed, Diagnosis, Need For Followup - Disposition Referrals: YOUR,PMD [Other] Disposition: HOME/ ROUTINE Disposition Time: 09:08 Condition: GOOD Instructions: Dependent Edema (DC) Forms: [facility] (Yoruba) - Clinical Impression Clinical Impression: Leg swelling - Scribe Statement The provider has reviewed the documentation as recorded by the Scribjackie Felix All medical record entries made by the Scribe were at my direction and personally dictated by me. I have reviewed the chart and agree that the record accurately reflects my personal performance of the history, physical exam, medical decision making, and the department course for this patient. I have also personally directed, reviewed, and agree with the discharge instructions and disposition.
[2018-03-04 09:21] VITALS: BP 132/89; PULSE 61; RESP 20; TEMP 98; O2SAT 98
--- NOTE | 2018-03-05 10:42 | VASCLAB ---
PROCEDURE: Right Lower Extremity Venous Duplex Exam. HISTORY: Swelling, r/o DVT PRIORS: None. TECHNIQUE: Right common femoral, femoral, popliteal and posterior tibial, peroneal and great saphenous veins were evaluated. Flow was assessed with color Doppler, compressibility, assessment of phasic flow and augmentation response. Report prepared by TIFFANIE Brunner FINDINGS: RIGHT: 1. Common Femoral Vein: 1.1. Compressibility - Fully compressible: Thrombus - None: Flow - Phasic: Augmentation -Normal: Reflux - None. 2. Femoral Vein: 2.1. Compressibility - Fully compressible: Thrombus - None: Flow - Phasic: Augmentation -Normal: Reflux - None. 3. Popliteal Vein: 3.1. Compressibility - Fully compressible: Thrombus - None: Flow - Phasic: Augmentation -Normal: Reflux - None. 4. Posterior Tibial Vein: 4.1. Compressibility - Fully compressible: Thrombus - None: Flow - Phasic: Augmentation -Normal: Reflux - None. 5. Peroneal Vein: 5.1. Compressibility - Fully compressible: Thrombus - None: Flow - Phasic: Augmentation -Normal: Reflux - None. 6. Great Saphenous Vein: 6.1. Compressibility - Fully compressible: Thrombus -None: Flow - Phasic: Augmentation - Normal: Reflux - None. OTHER FINDINGS: IMPRESSION: No evidence of deep or superficial vein thrombosis of the right lower extremity with excellent venous flow. Normal valve function noted of the right side. Normal venous flow noted in the left common femoral vein.
== END 2018-03-04 09:21 | disposition home or self-care (01) ==
LOC: C.ER 06:52
DX: M79.89 Other specified soft tissue disorders (principal); I10 Essential (primary) hypertension

== ENCOUNTER 2018-06-18 18:10 | Emergency (ER) | payer MEDICARE, OTHER ==
[2018-06-18 18:10] VITALS: BMI 29.9
[2018-06-18 18:29] VITALS: BP 134/81; PULSE 73; RESP 18; TEMP 99; O2SAT 99
[2018-06-18] MEDS ORDERED: Albuterol 0.083% Inhal Sol (2.5 mg/3 mL) UD IH STA (19:42)
[2018-06-18] MEDS ORDERED: Promethazine/Cod 6.25mg-10mg/5ml Syr UD PO STA (19:42)
[2018-06-18] MEDS ORDERED: Albuterol 0.083% Inhal Sol (2.5 mg/3 mL) UD ONE (19:48)
[2018-06-18] MEDS ORDERED: Promethazine/Cod 6.25mg-10mg/5ml Syr UD ONE (19:52)
--- NOTE | 2018-06-18 20:14 | C.PDOC ---
History Of Present Illness 63 yo female w/PMhx of asthma comes in for evaluation of colds x gradually developed for past few days " after had flu shot by my PMD". pt reports, noted scratchy throat, dry cough associated with chest tightness, wheezing for past 24 hrs " worse at night time". Pt admits, use neb tx at home with minimal improvement. Otherwise, pt denies high fever, headache, dizziness, drooling, dyspnea, CP, SOB, palpitation, abd. pain, V/D, UTI sx, recent travel or known sick contact. Ambulate to Ed for evaluation, not in any apparent distress. Time Seen by Provider: 06/18/18 19:18 Chief Complaint (Nursing): Cough, Cold, Congestion History Per: Patient Past Medical History Reviewed: Historical Data, Nursing Documentation, Vital Signs Vital Signs: Last Vital Signs Temp 99 F 06/18/18 18:27 Pulse 73 06/18/18 18:27 Resp 18 06/18/18 18:27 BP 134/81 06/18/18 18:27 Pulse Ox 99 06/18/18 18:27 - Medical History PMH: Anemia, Anxiety, Arthritis, Asthma, Back Problems, Bipolar Disorder, Colonic Polyps, COPD, Depression, Diverticulitis, Fibromyalgia, Gastritis, HTN, Hyperlipidemia Denies: Chronic Kidney Disease Surgical History: Appendectomy, Endoscopy (Colonoscopy) - [facility] Procedures ANESTH INJEC PERIPH NERV (01/19/15) ARTHROTOMY FOR REMOVAL OF PROSTHESIS W/OUT REPM, KNEE (11/03/14) CLOSED BIOPSY OF SKIN AND SUBCUTANEOUS TISSUE (11/03/14) DESTRUCT-KNEE LESION NEC (01/19/15) INJECT STEROID (01/19/15) INSERTION OR REPLACEMENT OF (CEMENT) SPACER (11/03/14) NONEXCIS DEBRID OF WOUND, INFECT, OR BURN (11/03/14) OPEN BIOPSY OF SOFT TISSUE (01/19/15) PACKED CELL TRANSFUSION (11/03/14) PERIPH NERVE INJECT NEC (01/19/15) PHYSICAL THERAPY NEC (05/14/14) REMOVAL OF (CEMENT) SPACER (01/19/15) TITUS OF KNEE REPLACEMENT, TOTAL (ALL COMPONENTS) (01/19/15) Family History: States: Unknown Family Hx - Social History Hx Tobacco Use: No Hx Alcohol Use: No Hx Substance Use: No - Immunization History Hx Tetanus Toxoid Vaccination: No Hx Influenza Vaccination: Yes Hx Pneumococcal Vaccination: Yes Review Of Systems Except As Marked, All Systems Reviewed And Found Negative. Constitutional: Positive for: Malaise. Negative for: Fever, Chills ENT: Positive for: Nose Discharge, Nose Congestion, Throat Pain. Negative for: Ear Discharge, Throat Swelling Cardiovascular: Negative for: Chest Pain, Palpitations Respiratory: Positive for: Cough, Wheezing. Negative for: Shortness of Breath, Sputum Gastrointestinal: Negative for: Nausea, Vomiting, Abdominal Pain, Diarrhea Genitourinary: Negative for: Dysuria Musculoskeletal: Negative for: Neck Pain, Back Pain Skin: Negative for: Rash Neurological: Negative for: Weakness, Numbness, Altered Mental Status, Headache, Dizziness Physical Exam - Physical Exam Appears: Well, Non-toxic, No Acute Distress Skin: Normal Color, Warm, Dry, No Rash Head: Normacephalic Eye(s): bilateral: PERRL Nose: No Flaring, Discharge (B/L nasal congestion) Oral Mucosa: Moist, No Drooling Tongue: Normal Appearing Lips: Normal Appearing Throat: No Erythema, No Drooling Neck: Trachea Midline, Supple Cardiovascular: Rhythm Regular, No Murmur, No JVD Respiratory: No Decreased Breath Sounds, No Accessory Muscle Use, No Rales, No Rhonchi, No Stridor, Wheezing (scattered Right base exp wheezing, BS equal B/L) Gastrointestinal/Abdominal: Soft, No Tenderness, No Distention, No Guarding Back: No CVA Tenderness Extremity: Normal ROM, No Deformity, No Swelling Neurological/Psych: Oriented x3, Normal Speech ED Course And Treatment O2 Sat by Pulse Oximetry: 99 Pulse Ox Interpretation: Normal - Radiology CXR: Interpreted by Me, Viewed By Al CXR Interpretation: Yes: No Acute Disease Progress Note: On re-eval, pt is non-toxic, not in any apparent distress.Afebrile, hemodynamicaly stable. Tolerate PO well in ED. PulsEOx 99% RA. ENT: no acute findings. neck: Supple, (-) meningeal sign. Lungs: CTA B/L, BS equal B/L. CVS: (+)S1S2, reg, (-) murmur. Abd: benign, (-) guarding, (-) rebound. Neurologicaly intact. CXR review and appears without acute abnormalities. Pt has clinical findings c/w URI, asthma exacerbation. Pt advised. Ref. to f/u with PMD in 1-2 days for re-eavl. return to ED if any worsening or new changes. Disposition Counseled Patient/Family Regarding: Studies Performed, Diagnosis, Need For Followup, Rx Given - Disposition Referrals: Oz Tucker MD [Staff Provider] - Disposition: HOME/ ROUTINE Disposition Time: 20:00 Condition: STABLE Additional Instructions: Encourage fluids take medication as prescribed Follow up with PMD in 2-3 days for re-evaluation. return to Ed if any worsening or new changes. Prescriptions: Benzonatate [Tessalon Perle] 100 mg PO TID #14 capsule Prednisone [Deltasone] 40 mg PO DAILY #6 tablet Instructions: Upper Respiratory Infection (ED), Asthma in Adults Print Language: COMORAN - Clinical Impression Clinical Impression: Upper respiratory infection, Asthma
--- NOTE | 2018-06-19 09:29 | RAD ---
Date of service: 06/18/2018 HISTORY: r/o pneumonia COMPARISON: 08/15/2017 TECHNIQUE: Chest PA and lateral FINDINGS: LUNGS: No active pulmonary disease. PLEURA: No significant pleural effusion identified. No pneumothorax apparent. CARDIOVASCULAR: Normal. OSSEOUS STRUCTURES: No significant abnormalities. VISUALIZED UPPER ABDOMEN: Normal. OTHER FINDINGS: None. IMPRESSION: No active disease.
== END 2018-06-18 20:29 | disposition home or self-care (01) ==
LOC: C.ER 18:10
DX: J06.9 Acute upper respiratory infection, unspecified (principal); J45.901 Unspecified asthma with (acute) exacerbation

== ENCOUNTER 2018-09-22 03:19 | Emergency (ER) | payer MEDICARE ==
[2018-09-22 03:19] VITALS: BMI 29.9
[2018-09-22 03:31] VITALS: TEMP 98.1
[2018-09-22] MEDS ORDERED: Sodium Chloride 0.9% 1,000 ML IV ONE (04:25)
--- NOTE | 2018-09-22 04:28 | C.PDOC ---
History Of Present Illness 63 year old female with PMHx of HTN, asthma, gastritis presents to the ED c/o right sided back pain for the past 4 days. Patient reports she fell at home 3 weeks ago. Patient states she did not go to see her PMD after it, reports pain now worsened. Patient reports back pain worsens with movement, ambulating. Patient denies LOC, headache, visual changes, dizziness, saddle anesthesia, bowel incontinence, weakness, numbness. Time Seen by Provider: 09/22/18 03:36 Chief Complaint (Nursing): Back Pain History Per: Patient History/Exam Limitations: no limitations Onset/Duration Of Symptoms: Days (4) Current Symptoms Are (Timing): Still Present Quality Of Discomfort: "Pain" Exacerbating Factor(s): Turning, Movement Recent travel outside of the [place]: No Additional History Per: Patient Past Medical History Reviewed: Historical Data, Nursing Documentation, Vital Signs Vital Signs: Last Vital Signs Temp 98.1 F 09/22/18 03:29 Pulse 72 09/22/18 03:29 Resp 16 09/22/18 03:29 BP 136/84 09/22/18 03:29 Pulse Ox 99 09/22/18 03:29 - Medical History PMH: Anemia, Anxiety, Arthritis, Asthma, Back Problems, Bipolar Disorder, Colonic Polyps, COPD, Depression, Diverticulitis, Fibromyalgia, Gastritis, HTN, Hyperlipidemia Denies: Chronic Kidney Disease Surgical History: Appendectomy, Endoscopy (Colonoscopy) - [facility] Procedures ANESTH INJEC PERIPH NERV (01/19/15) ARTHROTOMY FOR REMOVAL OF PROSTHESIS W/OUT REPM, KNEE (11/03/14) CLOSED BIOPSY OF SKIN AND SUBCUTANEOUS TISSUE (11/03/14) DESTRUCT-KNEE LESION NEC (01/19/15) INJECT STEROID (01/19/15) INSERTION OR REPLACEMENT OF (CEMENT) SPACER (11/03/14) NONEXCIS DEBRID OF WOUND, INFECT, OR BURN (11/03/14) OPEN BIOPSY OF SOFT TISSUE (01/19/15) PACKED CELL TRANSFUSION (11/03/14) PERIPH NERVE INJECT NEC (01/19/15) PHYSICAL THERAPY NEC (05/14/14) REMOVAL OF (CEMENT) SPACER (01/19/15) TITUS OF KNEE REPLACEMENT, TOTAL (ALL COMPONENTS) (01/19/15) Family History: States: Unknown Family Hx - Social History Hx Tobacco Use: No Hx Alcohol Use: Yes Hx Substance Use: No - Immunization History Hx Tetanus Toxoid Vaccination: No Hx Influenza Vaccination: Yes Hx Pneumococcal Vaccination: Yes Review Of Systems Constitutional: Negative for: Fever, Chills Cardiovascular: Negative for: Chest Pain Respiratory: Negative for: Shortness of Breath Gastrointestinal: Negative for: Nausea, Vomiting, Abdominal Pain Genitourinary: Negative for: Incontinence Musculoskeletal: Positive for: Back Pain, Leg Pain Skin: Negative for: Rash Neurological: Negative for: Weakness, Numbness, Headache, Dizziness Physical Exam - Physical Exam Appears: Non-toxic, No Acute Distress Skin: Normal Color, Warm, Dry Head: Atraumatic, Normacephalic Eye(s): bilateral: Normal Inspection, PERRL, EOMI Oral Mucosa: Moist Neck: Normal ROM, No Midline Cervical Tenderness, Supple Chest: Symmetrical, Other (right side bruises ) Cardiovascular: Rhythm Regular Respiratory: Normal Breath Sounds, No Rales, No Rhonchi, No Wheezing Gastrointestinal/Abdominal: Soft, No Tenderness, No Guarding, No Rebound Back: No Vertebral Tenderness, Paraspinal Tenderness (right sided ) Extremity: Normal ROM, No Tenderness, No Swelling Neurological/Psych: Oriented x3, Normal Speech, Normal Cognition, Normal Motor, Normal Sensation Gait: Steady ED Course And Treatment - Laboratory Results Result Diagrams: 09/22/18 04:36 09/22/18 04:36 O2 Sat by Pulse Oximetry: 99 (On RA) Pulse Ox Interpretation: Normal - Radiology CXR: Interpreted by Fl, Viewed By Fl CXR Interpretation: Yes: No Acute Disease. No: Infiltrates, Fracture - CT Scan/US Ct abd/pelvis Other Rad Studies (CT/US): Read By Radiologist, Radiology Report Reviewed CT/US Interpretation: CT SCAN OF THE ABDOMEN AND PELVIS WITHOUT ORAL OR IV CONTRAST. CLINICAL INDICATION: Right flank pain and lower back pain. TECHNIQUE: Axial and reformatted sagittal and coronal images of the abdomen pelvis obtained without IV contrast administration. COMPARISON: None. FINDINGS: The visualized lung bases are unremarkable. Normal unenhanced liver. Normal gallbladder and extrahepatic biliary system. Normal unenhanced spleen. Normal pancreas. . Normal bilateral adrenal glands. 5.1x4.5 cm uncomplicated angiomyolipoma in the upper pole of the right kidney. Normal size of the right kidney. There are no right renal calculi. There is no right hydronephrosis. Normal visualized right ureter. Normal size of the left kidney. There is no left renal mass. 2.7 cm left renal fluid density lesion, probably a cyst. There are no left renal calculi. There is no left hydronephrosis. Normal visualized left ureter. Normal visualized stomach. Normal small intestine. Uncomplicated diverticulosis of the colon. The appendix is visualized and appears normal. There is no demonstrated peritoneal fluid. Normal abdominal aorta. Normal inferior vena cava. Normal retroperitoneum. . Normal urinary bladder. There is no pelvic mass lesion or lymphadenopathy. There is no pelvic fluid. . Bilateral fat containing inguinal hernias without incarceration. Normal osseous structures. IMPRESSION: Uncomplicated angiomyolipoma of the right kidney. . Electronically signed on Sep 22, 2018 6:12:33 AM EST by: Niki Barahona M.D., Certified by DHRUV, MSK, Neuroradiology Medical Decision Making Medical Decision Making: Plan: * CT abd/pelvis * Labs * CXR * Pepcid 20 mg IVP * IV fluids * Toradol 30 mg IVP * [id number] 4 mg IVP * Urine culture * UA On re-exam, the patient reports improvement of symptoms. Lungs are CTA, heart is RRR, abdomen is soft, non-tender and tolerating PO well. Ambulatory in the ED with steady gait. Follow up with the medical doctor within 1-2 days. Return if worsened. Disposition - Disposition Referrals: Oz Tucker MD [Staff Provider] - Disposition: HOME/ ROUTINE Disposition Time: 06:50 Condition: STABLE Additional Instructions: Follow up with the medical doctor within 1-2 days. Return if worsened. Prescriptions: Cyclobenzaprine [Flexeril] 5 mg PO TID #21 tab Lidocaine 5% [Lidoderm] 1 each TP DAILY #10 patch Naproxen [Naprosyn] 500 mg PO BID #20 tab Instructions: Low Back Pain in Adults Forms: [facility] (Chilean) - Clinical Impression Clinical Impression: Thoracic back pain, Low back strain - PA / TREATER HELPER / Resident Statement MD/DO has reviewed & agrees with the documentation as recorded. - Scribe Statement The provider has reviewed the documentation as recorded by the Scribe Henrique Miner All medical record entries made by the Scribe were at my direction and personally dictated by me. I have reviewed the chart and agree that the record accurately reflects my personal performance of the history, physical exam, medical decision making, and the department course for this patient. I have also personally directed, reviewed, and agree with the discharge instructions and disposition.
[2018-09-22 04:38] LABS: BASO # 0.1 K/uL (0.0-0.2); BASO % 0.7 % (0.0-2.0); EOS # 0.1 K/uL (0.0-0.7); EOS % 0.8 % (0.0-4.0); HEMOGLOBIN 12.8 g/dL (11.0-16.0); LYMPH # 1.9 K/uL (1.0-4.3); LYMPH % 14.7 % (20.0-40.0); MEAN CELL VOLUME 82.5 fL (81.0-99.0); MEAN CORPUSCULAR HEMOGLOBIN 27.4 pg (27.0-31.0); MEAN CORPUSCULAR HGB CONC 33.2 g/dL (33.0-37.0); MEAN PLATELET VOLUME 8.8 fL (7.2-11.7); MONO % 7.4 % (0.0-10.0); NEUT # 9.9 K/uL (1.8-7.0); NEUT % 76.4 % (50.0-75.0); RBC 4.69 Mil/uL (3.80-5.20); RED CELL DISTRIBUTION WIDTH 14.4 % (11.5-14.5); WHITE BLOOD COUNT 12.9 K/uL (4.8-10.8)
[2018-09-22 04:55] LABS: ALB/GLOB RATIO 1.5 (1.0-2.1); ALBUMIN 4.4 g/dL (3.5-5.0); ALT/SGPT 19 U/L (9-52); AST/SGOT 15 U/L (14-36); BLOOD UREA NITROGEN 13 mg/dL (7-17); CALCIUM 9.8 mg/dl (8.6-10.4); GFR NON-AFRICAN AMERICAN > 60; LIPASE 66 U/L (23-300)
[2018-09-22 05:59] LABS: SQUAMOUS EPITHIAL 1 /hpf (0-5); URINE BACTERIA RARE (<OCC); URINE BILIRUBIN NEGATIVE (NEGATIVE); URINE BLOOD NEGATIVE (NEGATIVE); URINE CLARITY Clear (Clear); URINE COLOR Yellow (YELLOW); URINE GLUCOSE (UA) NORMAL (Normal); URINE LEUKOCYTE ESTERASE 1+ Leu/uL (Negative); URINE PROTEIN NEGATIVE (NEGATIVE); URINE UROBILINOGEN NORMAL mg/dL (0.2-1.0)
[2018-09-22] MEDS ORDERED: Lidocaine 5% Patch TD STA (06:34)
[2018-09-22] MEDS ORDERED: Lidocaine 5% Patch TD ONE (07:21)
[2018-09-22 07:38] VITALS: BP 132/78; PULSE 88; RESP 20; O2SAT 97
--- NOTE | 2018-09-22 09:33 | CT ---
Date of service: 09/22/2018 PROCEDURE: CT Abdomen and Pelvis without intravenous contrast HISTORY: right flank pain, back pain COMPARISON: 04/16/2018. TECHNIQUE: CT scan of the abdomen and pelvis was performed without administration of intravenous contrast. Oral contrast was not administered. Coronal and sagittal reformatted images were obtained. . Radiation dose: Total exam DLP = 570.71 mGy-cm. This CT exam was performed using one or more of the following dose reduction techniques: Automated exposure control, adjustment of the mA and/or kV according to patient size, and/or use of iterative reconstruction technique. FINDINGS: LOWER THORAX: There is subsegmental atelectasis in the lung bases. LIVER: Normal in size. No intrahepatic ductal dilatation. GALLBLADDER AND BILE DUCTS: No calcified gallstones. No biliary dilatation PANCREAS: Normal in size. No ductal dilatation. SPLEEN: Normal in size. ADRENALS: Normal in size. No discrete nodule. KIDNEYS AND URETERS: There is a 3.8 x 4.4 cm predominantly fat density mass in the upper pole of the right kidney. There are punctate nonobstructing stones in the right lower pole. No left nephrolithiasis.. No hydronephrosis. There is a 3.0 cm simple cyst in the upper pole of the left kidney posteriorly. VASCULATURE: No aortic aneurysm. No aortic atherosclerotic calcification or mural plaque present. BOWEL: The small bowel loops are normal in caliber. There is colonic diverticulosis without CT evidence for acute diverticulitis. No bowel dilatation or wall thickening. No bowel obstruction. APPENDIX: Normal appendix. PERITONEUM: No free fluid. No free air. LYMPH NODES: No enlarged lymph nodes. BLADDER: Well distended and grossly normal in appearance. REPRODUCTIVE: The prostate gland is normal in size BONES: No acute fracture. OTHER FINDINGS: There are bilateral small fat containing inguinal hernias. There is a small fat containing umbilical hernia. IMPRESSION: 5 mm nonobstructing stone in the lower pole of the right kidney. No hydronephrosis. 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 Colonic diverticulosis without CT evidence for acute diverticulitis. A preliminary report was provided by [email or web address].
--- NOTE | 2018-09-22 10:08 | RAD ---
Date of service: 09/22/2018 PROCEDURE: CHEST RADIOGRAPH, 1 VIEW HISTORY: abd pain, rib pain COMPARISON: 06/18/2018. FINDINGS: LUNGS: The lungs are well inflated and clear. PLEURA: No pneumothorax or pleural effusion. CARDIOVASCULAR: The heart is normal in size. No aortic atherosclerotic calcifications present. OSSEOUS STRUCTURES: Within normal limits for the patient's age. VISUALIZED UPPER ABDOMEN: Normal. OTHER FINDINGS: None. IMPRESSION: No active pulmonary disease.
== END 2018-09-22 06:30 | disposition home or self-care (01) ==
LOC: C.ER 03:19
DX: M54.6 Pain in thoracic spine (principal); S39.012A Strain of muscle, fascia and tendon of lower back, initial encounter; W01.0XXA Fall on same level from slipping, tripping and stumbling without subsequent striking against object, initial encounter; Y92.009 Unspecified place in unspecified non-institutional (private) residence as the place of occurrence of the external cause; I10 Essential (primary) hypertension; E78.5 Hyperlipidemia, unspecified; D64.9 Anemia, unspecified; F41.9 Anxiety disorder, unspecified
CPT/HCPCS: 71045; 74176; 80053; 81001; 83690; 85025; 87086; 96374; 96375; 99283; J1885; J2405; J7030